=== PATIENT | female | born 1945 | race Caucasian/White ===

== ENCOUNTER → 2024-03-23 08:35 | Outpatient (REF) | payer MEDICARE, SELFPAY | LOC: HWRAD 08:35 | PROVIDERS: ATTENDING PHYSICIAN Internal Medicine Cardiovascular Disease; FAMILY PHYSICIAN Family Medicine | DX: I65.21 Occlusion and stenosis of right carotid artery (principal) | CPT/HCPCS: 93880 ==

== ENCOUNTER 2024-09-27 08:37 | Outpatient (RCR) | payer MEDICARE, SELFPAY ==
[2024-09-20 09:15] VITALS: BP 139/60
[2024-09-20] MEDS: INJECTAFER 265 MG IV (09:25)
[2024-09-20 10:30] VITALS: BP 98/69
[2024-09-27 09:40] VITALS: BP 141/63
[2024-09-27] MEDS: INJECTAFER 265 MG IV (10:02)
[2024-09-27 11:06] VITALS: BP 125/53
== END 2024-09-28 10:29 | disposition home or self-care (01) ==
LOC: OID 08:37
PROVIDERS: ATTENDING PHYSICIAN Family Medicine
DX: D50.9 Iron deficiency anemia, unspecified (principal); J06.9 Acute upper respiratory infection, unspecified; M79.7 Fibromyalgia; Z79.01 Long term (current) use of anticoagulants
CPT/HCPCS: 96365; J1439

== ENCOUNTER → 2024-10-20 09:44 | Outpatient (REF) | payer MEDICARE, SELFPAY | LOC: HWRCS 09:44 | PROVIDERS: ATTENDING PHYSICIAN Internal Medicine Cardiovascular Disease; FAMILY PHYSICIAN Family Medicine | DX: I35.0 Nonrheumatic aortic (valve) stenosis (principal) | CPT/HCPCS: 93306 ==

== ENCOUNTER 2025-03-15 09:11 | Outpatient (RCR) | payer MEDICARE, SELFPAY ==
[2025-03-08 09:35] VITALS: BP 94/52
[2025-03-08] MEDS: INJECTAFER 265 MG IV (09:47)
[2025-03-08 10:42] VITALS: BP 108/49
[2025-03-15 09:41] VITALS: BP 125/64
[2025-03-15] MEDS: INJECTAFER 265 MG IV (09:42)
[2025-03-15 10:58] VITALS: BP 119/54
== END 2025-03-16 10:11 | disposition home or self-care (01) ==
LOC: OID 09:11
PROVIDERS: ATTENDING PHYSICIAN Family Medicine
DX: D50.9 Iron deficiency anemia, unspecified (principal); I35.0 Nonrheumatic aortic (valve) stenosis; E04.1 Nontoxic single thyroid nodule; R73.09 Other abnormal glucose
CPT/HCPCS: 96365; J1439

== ENCOUNTER → 2025-04-20 09:28 | Outpatient (REF) | payer MEDICARE, SELFPAY | LOC: HWRAD 09:28 | PROVIDERS: ATTENDING PHYSICIAN Family Medicine | DX: I65.23 Occlusion and stenosis of bilateral carotid arteries (principal); I65.21 Occlusion and stenosis of right carotid artery | CPT/HCPCS: 93880 ==

== ENCOUNTER → 2025-07-13 08:46 | Outpatient (REF) | payer MEDICARE, SELFPAY | LOC: WDC 08:46 | PROVIDERS: ATTENDING PHYSICIAN Family Medicine | DX: N63.12 Unspecified lump in the right breast, upper inner quadrant (principal) | CPT/HCPCS: 76642; 77062; 77066 ==

== ENCOUNTER → 2025-07-20 07:44 | Outpatient (REF) | payer MEDICARE, SELFPAY ==
--- NOTE | 2025-07-20 13:30 | OID.BR.INTR ---
[facility] Breast Navigator - Initial
- -
Date of Contact: 07/20/25
Met with patient. Patient given written information on navigator service available at [facility]. Will follow up as needed per protocol.
== END ==
LOC: WDC 07:44
PROVIDERS: ATTENDING PHYSICIAN Family Medicine
DX: N63.12 Unspecified lump in the right breast, upper inner quadrant (principal)
CPT/HCPCS: 19083; 88305; 88341; 88360; A4648

== ENCOUNTER → 2025-08-16 10:38 | Outpatient (REF) | payer MEDICARE, SELFPAY | LOC: RAD 10:38 | PROVIDERS: ATTENDING PHYSICIAN Internal Medicine Hematology & Oncology; FAMILY PHYSICIAN Family Medicine | DX: C50.311 Malignant neoplasm of lower-inner quadrant of right female breast (principal); Z78.0 Asymptomatic menopausal state | CPT/HCPCS: 77080 ==

== ENCOUNTER 2025-08-21 19:15 | Emergency (ER) | payer MEDICARE, SELFPAY ==
[2025-08-21 19:21] VITALS: BP 109/54
--- NOTE | 2025-08-21 22:03 | ED.GENMED ---
History of Present Illness
<Armando Kerns MD, Resident - Last Filed: 08/21/25 23:06>
General
Chief Complaint: Fall
Source: patient
Time Seen by Provider: 08/21/25 22:03
History of Present Illness
History of Present Illness:
79 yo F PMH paroxysmal atrial fibrillation (on warfarin), osteoporosis, breast cancer recent diagnosis on letrozole, hx of CVA, aortic stenosis, carotid artery disease s/p R ICA stent, CAD with stent 2009, dyslipidemia, essential HTN, hypothyroidism
she recently underwent a bone density survey on 08/16/2025, which showed T-scores < 2.5 c/w osteoporosis
Today, She p/w fall. She fell down flight ot stairs after foot slipped. denies head strike, LOC. She was on phone with daughter.
denies prodromal palpitations, presyncope. Appears mechanical fall in nature.
She reports focal lower back pain, but denies additional numbness beyond her neuropathy. She also denies focal weakness. She denies headache.
She denies bladder/bowel dysfunction, was able to use restroom while waiting. denies saddle anesthesia.
She reports left pinky finger tenderness, left wrist, and right elbow.
She denies any other chest pain or upper back pain. she denies dyspnea, she denies abomdinal pain.
Past History
<Armando Kerns MD, Resident - Last Filed: 08/21/25 23:06>
Past History
ED Past Medical History: Arrthythmia, CAD, Valvular disease and Other (Elevated cholesterol, CAD, CVA, A. fib,: CVA, hypertension )
ED Past Surgical History: Cardiac
Social History
Tobacco: Smoker
Alcohol: None
Drug: None
Personal: Single
Living: with roommate
Employment: Not employed
Review of Systems
<Armando Kerns MD, Resident - Last Filed: 08/21/25 23:06>
Review of Systems
Constitutional: Reports no symptoms
EENT: Reports no symptoms
Respiratory: Reports no symptoms
Cardiac: Reports no symptoms
ABD/GI: Reports no symptoms
: Reports no symptoms
Musculoskeletal: Reports joint pain, joint swelling and back pain
Neurological: Reports no symptoms
Phy Exam
<Armando Kerns MD, Resident - Last Filed: 08/21/25 23:06>
Physical Exam
Physical Exam:
General: no acute distress
CV: crescendo-decrescendo systolic murmur near erb's point on my exam
Pulm: CTAB
Abdomen: + bowel sounds, no tenderness to palpation
MSK: focal tenderness near lower back (thoracolumbar area), left pinky finger swollen, left wrist bruise, right elbow bruise
Neuro: AOx3, grossly intact, able to move all 4 extremities
Course
<Armando Kerns MD, Resident - Last Filed: 08/21/25 23:06>
Orders/Labs/Results
Orders:
Orders
08/21/25 19:24
CR Finger(s)/thumb Min 2 Vw Lt Urgent
Comment:
Reason For Exam: fall, swelling
08/21/25 19:25
CR Lumbar Spine 2 Or 3 Views Urgent
Comment:
Reason For Exam: fall, injury
08/21/25 22:59
Lidocaine [Lidocaine 4% Patch] 1 patch TOPICAL ONCE ONE
Apply Lidocaine patch(s) to:: lower back
Vital Signs
Initial and Last Documented VS:
Initial Vital Signs
Temp Pulse Resp BP Pulse Ox
98.9 F 74 19 109/54 97
08/21/25 19:21 08/21/25 19:21 08/21/25 19:21 08/21/25 19:21 08/21/25 19:21
Last Documented Vital Signs
Temp Pulse Resp BP Pulse Ox
98.9 F 74 19 109/54 97
08/21/25 19:21 08/21/25 19:21 08/21/25 19:21 08/21/25 19:21 08/21/25 22:07
<Isacc Mcdonough, DO - Last Filed: 08/21/25 23:02>
Orders/Labs/Results
Orders:
Orders
08/21/25 19:24
CR Finger(s)/thumb Min 2 Vw Lt Urgent
Comment:
Reason For Exam: fall, swelling
08/21/25 19:25
CR Lumbar Spine 2 Or 3 Views Urgent
Comment:
Reason For Exam: fall, injury
08/21/25 22:59
Lidocaine [Lidocaine 4% Patch] 1 patch TOPICAL ONCE ONE
Apply Lidocaine patch(s) to:: lower back
Vital Signs
Initial and Last Documented VS:
Initial Vital Signs
Temp Pulse Resp BP Pulse Ox
98.9 F 74 19 109/54 97
08/21/25 19:21 08/21/25 19:21 08/21/25 19:21 08/21/25 19:21 08/21/25 19:21
Last Documented Vital Signs
Temp Pulse Resp BP Pulse Ox
98.9 F 74 19 109/54 97
08/21/25 19:21 08/21/25 19:21 08/21/25 19:21 08/21/25 19:21 08/21/25 22:07
<Armando Kerns MD, Resident - Last Filed: 08/21/25 23:06>
MDM/Problems Addressed
Differential Diagnosis Includes:
vertebral compression fracture, presyncope/syncope, mechanical fall
MDM/Problems Addressed:
79 yo F w/ a likely mechanical fall now with focal tenderness of back and bruising of left pinky, left wrist, and right elbow
Etiology appears mechanical: she denies any presyncope, dizziness, palpitations. she denies LOC
Lumbar spine x-ray
Finger x-ray
ED attg review of images does not suggest fracture.
CT head noncontrast to evaluate for possible bleed in brain was discussed with the family becuase patient is on warfarin, but the patient denies headstrike and she denies headache, nausea, vomiting. VSS. The family is comfortable with being
discharged.
Plan is to apply a lidocaine patch to the area of tenderness on lower back, and then family is okay with being discharged to home.
<Armando Kerns MD, Resident - Last Filed: 08/21/25 23:06>
*Pulse Oximetry
SaO2: 97
Patient hypoxic: no
*Critical Care Note
Total Time (30-74mins, 75-104mins- exclusive of procedures): Not Applicable
ED Attending Note
<Armando Kerns MD, Resident - Last Filed: 08/21/25 23:06>
-
Portions of this chart may have been created with voice recognition software.� Occasional wrong word or��sound alike� substitutions may have occurred due to the inherent limitations of voice recognition software.
<Isacc Mcdonough, DO - Last Filed: 08/21/25 23:02>
ED Attending Note
Patient seen and examined by attending physician: Yes
I performed a history and physical exam of patient and discussed management with resident, I reviewed resident's note and agree with documented findings and plan of care.: Yes
ED Attending Note:
I have seen and evaluated the patient with a [id number] encounter. I have spoken to the resident and involved in the medical history, the physical exam, medical decision making.
Evaluation and management service: agree unless noted differently below.
Results interpretation: agree unless noted differently below.
Focused HPI: 79-year-old female presenting with a slip and fall. Patient states she was on the phone and she missed stepped and fell down a few steps on her buttock. Patient is on Coumadin and states her last INR was 2.4 today. She is very
adamant that she did not hit her head. She complains of back pain and left pinky pain
Physical exam: sitting in bed comfortably. Bruising noted to left. The finger is neurovascularly intact. Mild sacral tenderness without skin changes
Medical Decision Making: Lumbar x-ray negative for acute fractures. Pinky x-ray neck fractures. Discussed contusion. I long discussion with patient and family at bedside indicating age and fall while on Coumadin. Although patient denies head
injury, we discussed the very small possibility of intracranial hemorrhage. However, she shows no evidence of increased cranial pressure. She denies headache and denies nausea. Family is comfortable with foregoing CT
Discharge Plan
Departure
Patient Disposition: Home (Routine Discharge)
Date of Disposition: 08/21/25
Time of Disposition: 23:04
Patient with high blood pressure during this ER visit?: No
Condition: Fair
Discharge Problem:
Fall
Prescriptions:
No Action
warfarin [Jantoven] 1 MG tablet
1.5 mg PO .[id number]
Rx Instructions:
dose varies
metoprolol tartrate 100 MG tablet
100 mg PO BID
amlodipine 5 MG tablet
5 mg PO DAILY
calcium carbonate 600 MG tablet
600 mg PO BID
valsartan [Diovan] 320 MG tablet
160 mg PO HS
cholecalciferol (vitamin D3) 2,000 UNITS tablet
2,000 units PO DAILY
omeprazole 20 MG capsule,delayed release(DR/EC)
20 mg PO DAILY
ezetimibe 10 MG tablet
10 mg PO DAILY
levothyroxine 88 mcg tablet
75 mcg PO .6DAYSWEEK
Patient Comments:
skips sundays
warfarin [Jantoven] 1 MG tablet
2 mg PO .[id number]
Patient Comments:
dose varies
cyanocobalamin (vitamin B-12) [Vitamin B-12] 1,000 mcg Tablet
1,000 mcg PO DAILY
rosuvastatin 40 mg Tablet
40 mg PO HS
Referrals:
Micky Herrmann MD [Family Provider, Family Practice]
Activity Restrictions/Additional Instructions:
You can use a lidocaine patch to manage the local back pain.
You should follow-up with your PCP within 7-10 days.
Interventions
Interventions:
*General Assessment Last Done: 08/21/25 19:22
*Neglect/Abuse Screening Last Done: 08/21/25 19:22
*ED COVID-19 Vaccine History Last Done: 08/21/25 19:22
*ED Influenza Vaccine History Last Done: 08/21/25 19:22
*Risk Screen - Suicide (C-SSRS) Last Done: 08/21/25 19:22
ED-Musculoskeletal Assessment Last Done: 08/21/25 22:06
ED- Neurological Assessment Last Done: 08/21/25 22:06
ED-Skin Assessment Last Done: 08/21/25 22:06
Discharge Date and Time
Print Language: ANDORRAN
[2025-08-21 23:42] VITALS: BP 139/56
== END 2025-08-21 23:54 | disposition home or self-care (01) ==
LOC: EMR 19:15
PROVIDERS: EMERGENCY PHYSICIAN Student in an Organized Health Care Education/Training Program; FAMILY PHYSICIAN Family Medicine
DX: M54.50 Low back pain, unspecified (principal); S60.042A Contusion of left ring finger without damage to nail, initial encounter; W10.8XXA Fall (on) (from) other stairs and steps, initial encounter; E03.9 Hypothyroidism, unspecified; E78.00 Pure hypercholesterolemia, unspecified; F17.200 Nicotine dependence, unspecified, uncomplicated; I10 Essential (primary) hypertension; I25.10 Atherosclerotic heart disease of native coronary artery without angina pectoris; I35.0 Nonrheumatic aortic (valve) stenosis; I48.0 Paroxysmal atrial fibrillation; Z79.01 Long term (current) use of anticoagulants; Z85.3 Personal history of malignant neoplasm of breast; Z86.73 Personal history of transient ischemic attack (TIA), and cerebral infarction without residual deficits; Z95.5 Presence of coronary angioplasty implant and graft
CPT/HCPCS: 99284; 72100; 73140

== ENCOUNTER → 2025-08-24 18:34 | Outpatient (REF) | payer MEDICARE, SELFPAY | LOC: RAD 18:34 | PROVIDERS: ATTENDING PHYSICIAN Family Medicine | DX: M53.3 Sacrococcygeal disorders, not elsewhere classified (principal); Z91.81 History of falling | CPT/HCPCS: 72220 ==